=== PATIENT | male | born 1990 | race Caucasian/White ===

== ENCOUNTER 2021-05-06 19:28 | Emergency (ER) | payer OTHER ==
[~2021-05-06] VITALS: Ht 177.8 cm; Wt 95.5 kg
[2021-05-06] MEDS ORDERED: LIPI20TA PO (19:36)
[2021-05-06] MEDS ORDERED: IBUPROFEN 600MG TAB PO ONE (23:25)
[2021-05-06] MEDS ORDERED: NORCO 5/325MG TABLET (BULK FOR ED) PO ONE (23:25)
[2021-05-06] MEDS ORDERED: ACETAMINOPHEN TAB 650MG DOSE (2X325MG) PO ONE (23:25)
[2021-05-06 23:34] VITALS: BP 136/91
== END 2021-05-06 23:44 | disposition home or self-care (01) ==
LOC: M ED 19:28
DX: S43.52XA Sprain of left acromioclavicular joint, initial encounter (principal); V00.311A Fall from snowboard, initial encounter; Y92.89 Other specified places as the place of occurrence of the external cause; Y93.23 Activity, snow (alpine) (downhill) skiing, snowboarding, sledding, tobogganing and snow tubing; Y99.9 Unspecified external cause status; E78.5 Hyperlipidemia, unspecified; Z88.6 Allergy status to analgesic agent